=== PATIENT | male | born 1935 | race Caucasian/White ===

== ENCOUNTER → 2016-03-25 | Outpatient (REF) | payer MEDICARE, MEDICAID ==
[~2016-03-25] MED LIST: ALBU83IN INH; ASPI1TAB PO; ASPI81TA85 PO; BIMA01SOL OU; BUSP5TA PO; CELE10TA PO; CITA20TA4 PO; CORD200T PO; COUM1TAB19 PO; DOXY75CA3 PO; DULC10SU2 PR; ENSULIQ75 PO; FAMO20TA PO; FLEEENE4 PR; FLOM5CAP PO; JUVEPOW8 PO; KLOR1POW2 PO; LASI20TA PO; METO25TAB PO; MILKSUS PO; MIRA3350 PO; MULTLIQ PO; MULTTAB48 PO; PERC5TAB6 PO; PLAV75TA PO; PROVENTIL NEB; SENO8.6T2 PO; SIMB1SUS OP; TAMI30CA PO; TYLE325T5 PO; ULTR50TA PO; VESI5TAB PO
[2016-03-25 10:12] LABS: ANION GAP 7 MEQ/L (8-16); BLOOD UREA NITROGEN 21 MG/DL (7-18); CALCIUM LEVEL 8.9 MG/DL (8.8-10.2); CARBON DIOXIDE LEVEL 31 MEQ/L (21-32); CHLORIDE LEVEL 104 MEQ/L (98-107); GLOMERULAR FILTRATION RATE > 60.0 (>35); GLUCOSE, FASTING 78 MG/DL (83-110); POTASSIUM SERUM 4.2 MEQ/L (3.5-5.1); SODIUM LEVEL 142 MEQ/L (136-145)
== END ==
LOC: SKLAB5 08:47
PROVIDERS: ATTEND Family Medicine
DX: I10 Essential (primary) hypertension (principal)

== ENCOUNTER → 2016-04-12 | Outpatient (REF) | payer MEDICARE, MEDICAID ==
[~2016-04-12] MED LIST changes: -PLAV75TA PO; +PLAV75TA38 PO
[2016-04-12 12:56] LABS: BASO % 0.1 % (0.0-1.0); EOS % 0.1 % (0.0-3.0); LARGE UNSTAINED CELL # 0.3 K/mm3 (0.0-0.4); LARGE UNSTAINED CELL % 1.3 % (0.0-4.0); LYMPH # 0.8 K/mm3 (1.5-4.5); LYMPH % 3.3 % (24.0-44.0); MEAN CORPUSCULAR HEMOGLOBIN 30.3 pg (27.0-33.0); MEAN CORPUSCULAR HGB CONC 31.6 g/dl (32.0-36.5); MEAN CORPUSCULAR VOLUME 95.8 fl (80.0-96.0); MONO # 0.9 K/mm3 (0.0-0.8); MONO % 3.6 % (0.0-5.0); NEUTROPHILS # 21.8 K/mm3 (1.8-7.7); NEUTROPHILS % 91.5 % (36.0-66.0); PLATELET COUNT, AUTOMATED 537 k/mm3 (150-450); RED CELL DISTRIBUTION WIDTH 13.4 % (11.5-14.5); WHITE BLOOD COUNT 23.8 K/mm3 (4.0-10.0)
[2016-04-12 13:46] LABS: ALBUMIN/GLOBULIN RATIO 0.44 (1.00-1.93); ALKALINE PHOSPHATASE 127 U/L (45-117); ALT/SGPT 37 U/L (12-78); ANION GAP 8 MEQ/L (8-16); AST/SGOT 40 U/L (15-37); BILIRUBIN,TOTAL 0.6 MG/DL (0.2-1.0); BLOOD UREA NITROGEN 36 MG/DL (7-18); CARBON DIOXIDE LEVEL 33 MEQ/L (21-32); CHLORIDE LEVEL 113 MEQ/L (98-107); CREATININE FOR GFR 1.12 MG/DL (0.70-1.30); GLOMERULAR FILTRATION RATE > 60.0 (>35); GLUCOSE, FASTING 119 MG/DL (83-110); SODIUM LEVEL 154 MEQ/L (136-145); TOTAL PROTEIN 6.5 GM/DL (6.4-8.2)
== END ==
LOC: SKLAB5 10:55
PROVIDERS: ATTEND Family Medicine
DX: R50.9 Fever, unspecified (principal)

== ENCOUNTER → 2016-04-13 | Outpatient (REF) | payer MEDICARE, MEDICAID ==
[2016-04-13 07:54] LABS: MEAN CORPUSCULAR HEMOGLOBIN 30.1 pg (27.0-33.0); MEAN CORPUSCULAR HGB CONC 31.6 g/dl (32.0-36.5); MEAN CORPUSCULAR VOLUME 95.4 fl (80.0-96.0); RED CELL DISTRIBUTION WIDTH 13.4 % (11.5-14.5); WHITE BLOOD COUNT 23.7 K/mm3 (4.0-10.0)
[2016-04-13 08:16] LABS: ANION GAP 13 MEQ/L (8-16); BLOOD UREA NITROGEN 44 MG/DL (7-18); CALCIUM LEVEL 8.9 MG/DL (8.8-10.2); CARBON DIOXIDE LEVEL 29 MEQ/L (21-32); CHLORIDE LEVEL 113 MEQ/L (98-107); CREATININE FOR GFR 1.22 MG/DL (0.70-1.30); GLOMERULAR FILTRATION RATE > 60.0 (>35); GLUCOSE, FASTING 107 MG/DL (83-110); POTASSIUM SERUM 4.2 MEQ/L (3.5-5.1); SODIUM LEVEL 155 MEQ/L (136-145)
== END ==
LOC: SKLAB5 08:00
PROVIDERS: ATTEND Family Medicine
DX: R50.9 Fever, unspecified (principal)